=== PATIENT | female | born 1970 | race Caucasian/White ===

== ENCOUNTER 2016-07-18 08:31 | Inpatient (IN) | payer OTHER ==
[~2016-07-18] VITALS: Ht 157.5 cm; Wt 72.6 kg
[~2016-07-18 08:31] MED LIST: ATIVAN0.5 MG PO; ATIVAN1 MG PO; CYCLOBENZAPRINE10 M3 PO; ESCITALOPRAM10 MG PO; ESTRADIOL0.0375 MG1 TOP; FIORICET 325 MG1 TAB PO; K-TAB ER10 MEQ PO; LEVAQUIN500 MG PO; METHADONE HYDRO10 MG PO; METHADONE10 MG PO; METHADONE10 MG/1 M2 PO; NORCO 325 MG-51 TAB PO; NORETHINDRONE0.35 MG PO; OXYCODONE5 M1 PO; PEPCID40 MG PO; PREDNICOT20 MG PO; PROAIR HFA0.09 MG/Ac PO; PROGESTERONE100 M1 PO; PROGESTERONE100 MG PO; PROTONIX40 M3 PO; ZITHROMAX250 M1 PO; ZOFRAN ODT4 MG SL; ZOFRAN4 M2 PO
--- NOTE | 2016-07-18 08:41 | NUR ---
C/O CP SINCE THIS MORNING. STATES IT FEELS LIKE AN ELEPAHANT IS SITTING ON HER CHEST. PT C/O SOB. PT STATES SHE IS DETOXING FROM METHADONE X 18 DAYSPT STATES SHE IS VOMITING ALSO WITH ABDOMINAL PAIN
--- NOTE | 2016-07-18 08:48 | NUR ---
PT STATES SHE HAD GASTRIC BYPASS IN 2011 AND EVER SINCE THEN SHE HAS NOT BEEN HEALTHY. PT HAD BEEN ON METHADONE FOR 10 YEARS.
[2016-07-18 08:57] LABS: ABSOLUTE BASOPHIL COUNT 0.1 /CUMM (0.0-0.2); ABSOLUTE EOSINOPHIL COUNT 0 /CUMM (0.0-0.7); ABSOLUTE GRANULOCYTE CT 5.5 /CUMM (1.4-6.5); ABSOLUTE LYMPH COUNT 3.3 /CUMM (1.2-3.4); ABSOLUTE MONOCYTE COUNT 0.5 /CUMM (0.10-0.60); BASOPHIL % 0.6 % (0.0-2.0); EOSINOPHIL % 0 % (0-5); GRANULOCYTE % 59.2 % (42.2-75.2); HEMATOCRIT 33.7 % (37-47); MEAN CORPUSCULAR HGB 26.2 PG (27.0-31.0); MEAN CORPUSCULAR HGB CONC 32.7 G/DL (33.0-37.0); MEAN CORPUSCULAR VOLUME 79.9 FL (81.0-99.0); MEAN PLATELET VOLUME 7.2 FL (7.4-10.4); PLATELET COUNT 237 /CUMM (130-400); RBC DISTRIBUTION WIDTH 19.5 % (11.5-14.5); RED BLOOD CELL CT 4.22 /CUMM (4.20-5.40); WHITE BLOOD CELL COUNT 9.3 /CUMM (4.8-10.8)
--- NOTE | 2016-07-18 09:04 | NUR ---
LABS DRAWN AND SENT, LAV,SST,BLUE,SHELL TOP
--- NOTE | 2016-07-18 09:14 | ED CARDIAC/CP/PALPITATIONS ---
See Addendum History of Present Illness General Chief Complaint: Chest Pain Stated Complaint: CHEST PAIN X FEW HOURS Source: patient, family, old records Exam Limitations: no limitations Vital Signs & Intake/Output Vital Signs & Intake/Output Vital Signs Date Time Temp Pulse Resp B/P B/P Pulse O2 O2 Flow FiO2 Mean Ox Delivery Rate 07/18 1403 98.8 74 18 103/70 98 Room Air 07/18 1126 98.0 74 16 119/88 98 Room Air 07/18 0853 96 07/18 0840 97.4 69 20 146/88 96 Room Air Allergies Coded Allergies: Sulfa (Sulfonamide Antibiotics) (HIVES RASH 12/20/15) acetaminophen (Severe, LIVER PROBLEMS 12/20/15) aspirin (VOMITING 12/20/15) codeine (VOMITING 12/20/15) Reconcile Medications Methadone HCl 10 MG/ML ORAL.CONC 80 MG PO DAILY MAINTENCE (Reported) Potassium Chloride (K-Tab ER) 10 MEQ TABLET.ER 1 TAB PO DAILY HYPOKALEMIA Triage Note: C/O CP SINCE THIS MORNING. STATES IT FEELS LIKE AN ELEPAHANT IS SITTING ON HER CHEST. PT C/O SOB. PT STATES SHE IS DETOXING FROM METHADONE X 18 DAYSPT STATES SHE IS VOMITING ALSO WITH ABDOMINAL PAIN Triage Nurses Notes Reviewed? yes Onset: Abrupt Duration: hour(s):, day(s):, constant, continues in ED Timing: recent history Quality/Severity: moderate, severe, pressure, sharp HPI: 46-year-old female comes into emergency room for multiple complaints. Patient reports that she recently stopped her methadone about a week ago. She has been experiencing nausea vomiting abdominal pain. She has a history of gastric bypass surgery. Today she reports that she's been having associated chest pain has been going on for the past 3 hours. She feels like someone is sitting on her chest. Patient reports associated nausea chills and sweats. (ANI LIU) Past History Travel History Traveled to [place] past 21 day No Medical History Any Pertinent Medical History? 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 No (ANI LIU) Review of Systems Review of Systems Constitutional: Reports: see HPI. EENTM: Reports: no symptoms. Respiratory: Reports: see HPI. Cardiovascular: Reports: see HPI. GI: Reports: see HPI. Genitourinary: Reports: no symptoms. Musculoskeletal: Reports: no symptoms. Skin: Reports: no symptoms. Neurological/Psychological: Reports: no symptoms. Hematologic/Endocrine: Reports: no symptoms. Immunologic/Allergic: Reports: no symptoms. All Other Systems: Reviewed and Negative (ANI LIU) Physical Exam Physical Exam General Appearance: well developed/nourished, alert, awake Head: atraumatic, normal appearance Eyes: Bilateral: normal appearance, EOMI. Ears, Nose, Throat: normal pharynx, normal ENT inspection, hearing grossly normal Neck: normal inspection, full range of motion Respiratory: normal breath sounds, no respiratory distress Cardiovascular: regular rate/rhythm Gastrointestinal: soft Rectal: heme negative stool Back: normal inspection Extremities: normal inspection, normal range of motion, no edema Neurologic/Psych: awake, alert, oriented x 3, normal gait, normal mood/affect Skin: intact, normal color Core Measures ACS in differential dx? No Severe Sepsis Present: No Septic Shock Present: No (ANI ILU) Progress Differential Diagnosis: AMI, aortic dissection, atrial fibrillation, costochondritis, intracranial hemorrhage, musculoskeletal pain, myocarditis, pancreatitis, pericarditis, pneumonia, PSVT, pulmonary embolism, PUD/GERD, PVCs/ PACs, respiratory failure, rib fracture, sepsis, unstable angina, V-fib/V-Tach, WPW syndrome, opioid withdrawal Plan of Care: Orders Procedure Date/time Status Clear Liquid Diet 07/18 D Active Lab Add-on Test 07/18 1358 Active Code Status 07/18 1353 Active Lab Add-on Test 07/18 1335 Active Lab Add-on Test 07/18 1332 Active LACTIC ACID 07/18 1332 Active Pathway - chart 07/18 1319 Active House Staff 07/18 1319 Active Code Status 07/18 1319 Complete Patient Data 07/18 1315 Active Telemetry/Ethylbenzene Oxidizer 07/18 1225 Active Add-on Test (ER Only) 07/18 1210 Active CULTURE,URINE 07/18 1114 Active URINE DRUGS OF ABUSE 07/18 1113 Complete Add-on Test (ER Only) 07/18 1005 Active URINALYSIS 07/18 1005 Complete Add-on Test (ER Only) 07/18 0914 Active Add-on Test (ER Only) 07/18 0913 Active Add-on Test (ER Only) 07/18 0912 Active PROTHROMBIN TIME 07/18 0851 Active MAGNESIUM 07/18 0851 Active LIPID PANEL 07/18 0851 Active LIPASE 07/18 0851 Active LACTIC ACID 07/18 0851 Active HUMAN BETA HCG SCREEN 07/18 0851 Active GLYCOSYLATED HGB 07/18 0851 Active DIRECT LDL 07/18 0851 Active D-DIMER 07/18 0851 Active AMYLASE 07/18 0851 Active TROPONIN LEVEL 07/18 0849 Active ETHANOL 07/18 0849 Active COMPREHENSIVE METABOLIC PANEL 07/18 0849 Active CBC WITHOUT DIFFERENTIAL 07/18 0849 Complete EKG 07/18 0832 Active US-LIMITED ABDOMEN 07/18 UNK Active VTE Mechanical Prophylaxis 07/18 UNK Active Current Medications Sig/Blake Start time Last Medication Dose Stop Time Status Admin Enoxaparin Sodium 40 MG DAILY 07/19 1000 UNVr (Lovenox) Acetaminophen 650 MG Q6P PRN 07/18 1330 AC (Tylenol) Acetaminophen/ 1 TAB Q6P PRN 07/18 1330 AC Hydrocodone Bitart (Vicodin) Lactated Ringer's 1,000 ML ONCE ONE 07/18 1330 AC (Lactated Ringers) 07/18 1829 Morphine Sulfate 2 MG Q4P PRN 07/18 1330 AC (Morphine) Senna/Docusate Sodium 2 TAB AT BEDTIME PRN 07/18 1330 AC (Senokot S) Laboratory Tests 07/18/16 1400: Lactic Acid Pending 07/18/16 1114: Urine Opiates Screen < 100.00, Methadone Screen 683 H, Barbiturate Screen < 60, Ur Phencyclidine Scrn < 6.00, Amphetamines Screen < 100, U Benzodiazepines Scrn < 85, Urine Cocaine Screen < 50, Urine Cannabis Screen < 5.00, Urinalysis LIGHT H, Urine Color YEL, Urine Clarity HAZY H, Urine pH 6.0, Ur Specific Addison <= 1.005, Urine Protein NEG, Urine Ketones NEG, Urine Nitrite POS H, Urine Bilirubin NEG, Urine Urobilinogen 0.2, Ur Leukocyte Esterase MOD H, Ur Microscopic SEDIMENT EXAMINED, Urine RBC 1-3, Urine WBC > 75 H, Ur Epithelial Cells FEW, Urine Bacteria MANY H, Micro UA Comment MORE INFO: H, Urine Hemoglobin SMALL H, Urine Glucose NEG 07/18/16 0851: Anion Gap 18 H, Estimated GFR > 60, BUN/Creatinine Ratio 17.5, Glucose 101 H, Hemoglobin A1c Pending, Lactic Acid 4.5 H, Calcium 7.6 L, Magnesium 1.7, Total Bilirubin 1.8 H, AST 613 H, ALT 359 H, Alkaline Phosphatase 185 H, Troponin I < 0.01, Total Protein 6.2 L, Albumin 3.5, Globulin 2.7, Albumin/Globulin Ratio 1.3, Triglycerides 767 H, Cholesterol 134, LDL Cholesterol Direct Pending , LDL Cholesterol, Calc Pending, HDL Cholesterol 53, Cholesterol/HDL Ratio 3, Amylase 150 H, Lipase 1804 H, Total Beta HCG NEGATIVE, PT Pending, INR Pending , D-Dimer 1028 H, CBC w Diff NO MAN DIFF REQ, RBC 4.22, MCV 79.9 L, MCH 26.2 L, RDW 19.5 H, MPV 7.2 L, Gran % 59.2, Lymphocytes % 35.0, Monocytes % 5.2, Eosinophils % 0, Basophils % 0.6, Absolute Granulocytes 5.5, Absolute Lymphocytes 3.3, Absolute Monocytes 0.5, Absolute Eosinophils 0, Absolute Basophils 0.1, PUBS MCHC 32.7 L, Serum Alcohol 289.0 Microbiology 07/18 1114 URINE ROUT: Urine Culture - RECD Initial ED EKG: normal intervals, normal p-waves, normal sinus rhythm, rate (59) (ANI LIU) Departure Departure Disposition: STILL A PATIENT Condition: Stable Clinical Impression Primary Impression: Acute alcoholic pancreatitis Secondary Impressions: Chest pain, Lactic acid acidosis, UTI (urinary tract infection) Referrals: JOE SARGENT MD (PCP/Family) Departure Forms: Customer Survey General Discharge Information Admission Note Spoke With: VARUN ECHEVERRIA MD Documentation of Exam: Documentation of any treatments & extenuating circumstances including Concerns Regarding Discharge (functional status, medication knowledge or non-compliance, living conditions, etc.) that warrant an admission rather than observation: Patient will require IV fluids. GI consult. Repeat labs. IV nausea medications. Possibly EtOH withdrawal. Antibiotics. (ANI LIU) PA/CYBER SECURITY SPECIALIST Co-Sign Statement Statement: ED Attending supervision documentation- [] I saw and evaluated the patient. I have also reviewed all the pertinent lab results and diagnostic results. I agree with the findings and the plan of care as documented in the PA's/CYBER SECURITY SPECIALIST's documentation. [X] I have reviewed the ED Record and agree with the PA's/CYBER SECURITY SPECIALIST's documentation. [] Additions or exceptions (if any) to the PAs/CYBER SECURITY SPECIALIST's note and plan are summarized below: [] (ELEAZAR RAINES DO) Critical Care Note Critical Care Note Critical Care Time: non-applicable (ANI LIU)
--- NOTE | 2016-07-18 09:19 | NUR ---
DR. MACHUCA'S OFFICE CALLED RE PAIN MEDS PT ARRIVED TO THE OFFICE INTOXICATED ON 07/08 AND WAS DENIED RENEWAL OF HER METHADONE AND BROUGHT TO ED PA MADE AWARE
--- NOTE | 2016-07-18 09:34 | NUR ---
IV FLUIDS INFUSING DIRECTED PT MEDICATED FOR PAIN AND NAUSEA
--- NOTE | 2016-07-18 09:40 | NUR ---
CRITICAL TEST RESULTS [id number] SOCORRO PECK 46 F TESTS AND RESULTS: LACTIC ACID 4.5 Results received and read back by: GIUSEPPE RILEY Results received date and time: 07/18/16 0940 The following provider was notified of the results, and read the results back: ANI Otto PA-C Notified date and time: 07/18/16 at 0940
--- NOTE | 2016-07-18 10:19 | NUR ---
PT TO CAT SCAN
--- NOTE | 2016-07-18 10:39 | NUR ---
PT RETURNED FROM CAT SCAN MEDICATED DIRECTED
--- NOTE | 2016-07-18 10:45 | NUR ---
PT REMINDED TO KEEP ARM STRAIGHT FLUIDS RUNNING IN SLOWLY
--- NOTE | 2016-07-18 11:08 | CT SCAN REPORT ---
EXAMINATION: CT ANGIOGRAM OF THE CHEST WITH AND WITHOUT CONTRAST (CT PULMONARY ANGIOGRAM FOR PE) CT ABDOMEN PELVIS WITH IV CONTRAST CLINICAL INFORMATION: SEVERE CHEST PAIN, ELEVATED DIMER COMPARISON: Chest x-ray 02/08/2016, CT abdomen pelvis 12/20/2015 and MRI of abdomen 12/21/2015 TECHNIQUE: Multidetector volumetric imaging was performed from the thoracic inlet to below the diaphragms following the administration of 95 mL Optiray 350 intravenous contrast. No contrast reaction reported. Subsequently during the portal venous phase, multidetector volumetric imaging was performed from the diaphragmatic to the symphysis pubis. Sagittal, coronal, and MIP oblique sagittal reformatted images were obtained on the CT workstation, uploaded to PACS, and reviewed. Total exam dose-length product 1118.59 mGy-cm. FINDINGS: QUALITY OF STUDY/CONTRAST BOLUS: Satisfactory PULMONARY ARTERIES: The pulmonary arteries are normal in diameter. No central or segmental pulmonary emboli. THORACIC AORTA: No aneurysm or dissection. LUNG: No focal consolidation, nodules or masses. PLEURA: No pleural effusion or pneumothorax. MEDIASTINUM: Normal heart size. No pericardial effusion. No hilar or mediastinal lymphadenopathy. No evidence of septal bowing or right heart strain. CHEST WALL/AXILLA: No axillary or internal mammary lymphadenopathy. OSSEOUS STRUCTURES: No acute or suspicious osseous abnormality. ABDOMEN: Diffuse decreased hepatic parenchymal density, represents hepatic steatosis. No focal hepatic lesions seen. The portal vein is patent. Prior cholecystectomy. The spleen, pancreas, adrenal glands and kidneys are unremarkable. No renal stones or hydronephrosis. No focal renal lesion. The ureters are not dilated. No ureter stone. The urinary bladder is full and unremarkable. The patient is status post gastric bypass surgery. There is no evidence of obstruction at the anastomotic site. The small bowel loops and colon are not dilated. The appendix is visualized and unremarkable. The uterus is unremarkable. No adnexal masses seen. The abdominal aorta is normal in diameter. No mesenteric or retroperitoneal adenopathy. No free air or fluid in the abdomen pelvis. No aggressive bony lesions or acute bone fractures. IMPRESSION: 1. No pulmonary embolus. 2. No thoracic or abdominal aortic aneurysm. 3. Hepatic steatosis. 4. Prior gastric bypass surgery without evidence of obstruction at the anastomotic site 5. Prior cholecystectomy. VTE: negative
--- NOTE | 2016-07-18 11:18 | NUR ---
URINE TRIO SENT AND ICE CHIPS PROVIDED PER REQUEST
--- NOTE | 2016-07-18 11:27 | NUR ---
PT GIVEN MULTIPLE BLANKETS PER REQUEST FOR BEING COLD. PT ASKING FOR WATER AND GIVEN ICE CHIPS PER PA. C/O DISCOMFORT, NAUSEA, FEELING TERRIBLE
--- NOTE | 2016-07-18 12:59 | NUR ---
MEDICATED WITH ATIVAN PER EMAR. CONTINUES TO COMPLAIN ABOUT ACHES AND DISCOMFORT. REQUESTING MEDS
--- NOTE | 2016-07-18 13:18 | History & Physical ---
General Information and HPI MD Statement: I have seen and personally examined SOCORRO PECK and documented this H&P. The patient is a 46 year old F who presented with a patient stated chief complaint of [abdominal pain]. Source of Information: patient History of Present Illness: This is a 46-year-old female with a past medical history of morbid obesity status post Claire-en-Y gastric bypass surgery in 2002 which was complicated by hiatal hernia or obstruction, and status post cholecystectomy 4 years back, history of recurrent pancreatitis in the past, with her last admission for pancreatitis in December 2015, on chronic methadone which has been tapered off in the last week (07/11/16 with the last dose )who presented to the [facility] with persistent epigastric pain and tenderness for the last 1 week. The patient's pain started suddenly and has been ongoing since then. The pain, 8 on 10, in the epigastric area, radiating to the back sometimes, is associated with nausea and clear liquid vomitus. The patient was concerned about having mild heart attack as the pain was mostly in her chest area but she denied any other cardiac symptoms, for example shortness of breath palpitations hand numbness or tingling. She denied any weight loss. She has not been following up with her bariatric surgeon on outpatient basis, and her last appointment was in January 2016 and at that time she was reassured that everything was okay - The patient the patient was lying in moderate distress and was heavily sedated due to pain medications but was awake alert oriented 3. She complained of forearm 10 pain at the time of examination. She also felt less nauseous and was asking for clear liquids Allergies/Medications Allergies: Coded Allergies: Sulfa (Sulfonamide Antibiotics) (HIVES RASH 12/20/15) acetaminophen (Severe, LIVER PROBLEMS 12/20/15) aspirin (VOMITING 12/20/15) codeine (VOMITING 12/20/15) Home Med list Methadone HCl 10 MG/ML ORAL.CONC 80 MG PO DAILY MAINTENCE (Reported) Potassium Chloride (K-Tab ER) 10 MEQ TABLET.ER 1 TAB PO DAILY HYPOKALEMIA Past History Travel History Traveled to [place] past 21 day No Medical History Neurological: migraine EENT: sinusitis Cardiovascular: NONE Respiratory: asthma Gastrointestinal: pancreatitis Hepatic: recurrent hepatitis with early cirrhosis Renal: NONE Musculoskeletal: disk herniation Psychiatric: anxiety, opioid dependence Endocrine: NONE Blood Disorders: anemia Cancer(s): NONE INTAKE CLERK/Reproductive: 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 spouse Services at Home: None Primary Language: Romanian Smoking Status: Former Smoker ETOH Use: alcoholic Illicit Drug Use: denies illicit drug use Living Will? unknown Functional Ability ADLs Independent: dressing, eating, toileting, bathing. Ambulation: independent IADLs Independent: shopping, housework, finances, food prep, telephone, transportation , medication admin. Review of Systems Review of Systems Constitutional: Reports: see HPI. Denies: chills. GI: Reports: abdominal pain, constipation, nausea. Genitourinary: Denies: dysuria, frequency, hematuria. Musculoskeletal: Denies: gout, joint pain, joint swelling. Skin: Denies: cysts, change in hair/nails, dryness. Exam & Diagnostic Data Last 24 Hrs of Vital Signs/I&O Vital Signs Date Time Temp Pulse Resp B/P B/P Pulse O2 O2 Flow FiO2 Mean Ox Delivery Rate 07/18 1126 98.0 74 16 119/88 98 Room Air 07/18 0853 96 07/18 0840 97.4 69 20 146/88 96 Room Air Intake & Output 07/18 1600 / 0800 05 0000 Intake Total 1000 Output Total Balance 1000 Intake, IV 1000 Intake, Oral 0 Patient 170 lb Weight Weight Reported by Patient Measurement Method Physical Exam General Appearance Alert, Oriented X3, Moderate Distress Skin No Rashes Skin Temp/Moisture Exam: Cool/Dry HEENT Atraumatic, PERRLA Neck Supple, No JVD Lymphatic Axillary nl, Cervical nl Cardiovascular Normal S1, Normal S2 Lungs Clear to Auscultation, Normal Air Movement Abdomen mild tenderness in the epigastric area Normal bowel sounds no guarding Neurological Normal Gait, Normal Speech Extremities No Clubbing, No Cyanosis Diagnostic Data EKG Results Normal sinus rhythm Assessment/Plan Assessment: This is a 46-year-old female with a past medical gastric bypass surgery, migraine headache, chronic opiate use with recent taper of methadone who presented to [facility] persistent abdominal pain with nausea and vomiting. The imaging and the labs values were significant for acute pancreatitis Vitals at the time of admission showed blood pressure 146/88, respiration rate of 20, temperature 97.4, saturation 96% on room air, pulse rate of 69 Labs WBC of 9.3 with no bands, hemoglobin of 11.0, Chemistries show sodium of 137, potassium of 3.5, chloride of 98, bicarbonate 22 , anion gap of 18, glucose of 101, creatinine and GFR within normal limits Lipase greater than 1800, elevated AST and Alp CT scan shows: 1. No pulmonary embolus. 2. No thoracic or abdominal aortic aneurysm. 3. Hepatic steatosis. 4. Prior gastric bypass surgery without evidence of obstruction at the anastomotic site 5. Prior cholecystectomy. Assessment 1. Acute pancreatitis likely secondary to chronic alcohol use the patient's alcohol level greater than 298. Other possibility for acute pancreatitis considering gastric bypass surgery could be gallstones, even though calcium oxalate stones are more common gastric bypass patients 2. Alcoholic hepatitis and alcoholic dependence 3. Chronic opiate use 4. Elevated anion gap with no evidence of metabolic acidosis. Likely secondary to dehydration Plan Admit to general medicine floor IV Ringer lactate at 200 M's per hour with aggressive IV hydration The patient is requesting to drink something, and it is appropriate to start a clear liquid diet Pain control with IV morphine 2 mg every 4 when necessary Rule out secondary causes of pancreatitis other than alcohol, this includes checking a lipid panel for hypertriglyceridemia, and also do ultrasound of the abdomen to rule out any CBD stone considering elevated bilirubin level we will check coags, INR and PTT to calculate the disc imaging factor for alcoholic hepatitis We can use IV Ativan as needed for alcohol withdrawal as the patient states her last drink was 48 hours back and the serum alcohol level was greater than 298 DVT prophylaxis with subcutaneous Lovenox Patient is full code Pain pathways As Ranked By This Provider Problem List: 1. Chest pain 2. Vomiting 3. Intractable abdominal pain Core Measures/Miscellaneous Acute Coronary Syndrome ACS Diagnosis: No Cerebrovascular Accident CVA/TIA Diagnosis: No Congestive Heart Failure CHF Diagnosis: No Venous Thromboembolism VTE Risk Factors: Acute medical illness, Age > 40 [facility] prophylaxis d/t: No contraindications No VTE Pharm Prophylaxis d/t: No contraindications VTE Diagnosis: No VTE Type: NONE VTE Confirmed by (Test): NONE Severe Sepsis Severe Sepsis Present: No Septic Shock Septic Shock Present: No Miscellaneous Documentation Attending Case Discussed With: DR Tim Primary Care Physician: JOE SARGENT MD Patient sees these Specialists dr simpson Level of Patient Care: General Medicine
--- NOTE | 2016-07-18 14:02 | NUR ---
PT RESTING COMFORTABLY AT THIS TIME. LACTIC DRAWN AND SENT. VSS. FINALLY FEELING BETTER, CALMER, AND LESS RESTLESS OR IN PAIN. PT INFORMED THAT U/S IS READY FOR HER, BUT REQUESTING TO DO STUDY LATER. U/S AWARE. LIGHTS DIMMED FOR COMFORT AND CALL [facility] IN REACH
[2016-07-18 14:05] VITALS: BP 103/70
[2016-07-18 14:05] LABS: PT 12.5 SEC (9.4-12.5)
--- NOTE | 2016-07-18 14:05 | NUR ---
PT ALSO GIVEN GOWN TO CHANGE, BUT STATES "IM TOO COLD, I WANT TO STAY LIKE THIS". AWARE THAT GOWN IS PREFERED FOR ADMITTED PATIENTS. IN AGREEMENT TO CHANGE LATER FOR U/S
[2016-07-18 15:26] VITALS: BP 114/55
--- NOTE | 2016-07-18 15:26 | NUR ---
PT NOTABLY TREMULOUS, FEELING ACHY. CIWA 11 AND MEDICATED WITH ATIVAN PER eMAR. ALSO MED WITH CIPRO PER ORDER FOR UTI AND INFORMED OF PLAN FOR U/S. PT ASKING TO STAY IN REGULAR CLOTHES. U/S AWARE
--- NOTE | 2016-07-18 15:37 | NUR ---
LR GTT AT 200ML/HR PER ORDER. PT TO U/S VIA STRETCHER
--- NOTE | 2016-07-18 15:45 | NUR ---
PT TO ROOM 204 BED 1'
--- NOTE | 2016-07-18 16:16 | NUR ---
PT CONT TO BE RESISTIVE OT CHANGING INTO HOSPITAL GARB, UPON RETURN FROM US.
--- NOTE | 2016-07-18 16:33 | NUR ---
REPORT GIVEN DISTRIBUTION BOOKED.
--- NOTE | 2016-07-18 16:33 | NUR ---
REPORT TO DASHAWN
--- NOTE | 2016-07-18 17:12 | ULTRASOUND REPORT ---
EXAMINATION: US ABDOMEN LIMITED CLINICAL INFORMATION: 46-year-old female with severe chest pain, elevated D-dimer. Suspected pancreatitis. COMPARISON: CTA of the chest, abdomen and pelvis done earlier today. TECHNIQUE: Real-time imaging of the right upper quadrant abdominal viscera. FINDINGS: PANCREAS: Normal. LIVER: Mild diffuse heterogeneous abnormal increased echotexture is noted throughout the entire liver, consistent with diffuse liver disease likely secondary to hepatic steatosis or hepatocellular disease. No sonographically detectable superimposed discrete focal abnormality is present. GALLBLADDER: The gallbladder is surgically absent. COMMON BILE DUCT: Normal in caliber measuring 0.6 cm in diameter. RIGHT KIDNEY: Normal. No hydronephrosis. No renal calculi or focal parenchymal lesions. The kidney measures 8.6 cm in maximum dimension. FREE FLUID: None. IMPRESSION: 1. No sonographic evidence of biliary obstruction and/or choledocholithiasis is present. 2. Surgically absent gallbladder. 3. Diffuse abnormality involving the liver, consistent with diffuse liver disease, without any superimposed discrete focal abnormality.
[2016-07-18 18:45] VITALS: BP 128/82
--- NOTE | 2016-07-18 19:04 | NUR ---
ADMISSION ASSESSMENT: PT ARRIVED TO FLOOR AT 1745 FROM ED. PT A&OX3, VSS, AFEBRILE, PT STATES PAIN 8/10 TO LOWER BACK. #20 LAC IV W/LR@150ML/HR INFUSING. PT ASST X1 TO BATHROOM SHE IS FEELING "UNSTEADY". PT ASKING FOR ATIVAN AND ZOFRAN AND PYRIDIUM. AWAITING ORDERS. 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 ORDERS PLACED. PT MEDICATED FOR PAIN, NAUSEA, CIWA. ORIENTED TO ROOM AND FLOOR.
[2016-07-18 22:38] VITALS: BP 141/81
[2016-07-19 06:13] VITALS: BP 130/72
--- NOTE | 2016-07-19 07:11 | PN- Housestaff ---
MARTÍN CASTILLO,IRVING 07/19/16 0711: Subjective Follow-up For: PANCREATITIS alcohol dependence Subjective: Pt seen today, feels the same as yesterday, continues to endorse feeling weak, sore, can't walk, chest tightness, nausea, epigastric pain radiating to the back. currently the pain is 7/10, her pain ranged from 3-10 over last 24 hrs, and she received total 8 mg of iv morphine. her ciwa is 0-11, received total 3 mg of iv ativan over the last 24 hrs labs reviewed - hb 11 to 9.3, platelet 237 to 143, wbc 9.3 to 6. k 3.2 to 3.4 ( ordered 1x40 kdur), na 131 to 136, mag 1.7 to 1.3 (ordered 1gm mg sulf), tibili 1.8 to 2.4, with 1.1 direct bili, ast 613 to 421, alt 359 to 276, alk phos 185 to 177. ca 7.3. alb 2.7. lactic acid up to 5.7, now down to 2.6 . ag from 18 to 9. she tolerated clear liquid diet well with intermittent nausea, will advance to full liquid. RUQ US IMPRESSION: 1. No sonographic evidence of biliary obstruction and/or choledocholithiasis is present. 2. Surgically absent gallbladder. 3. Diffuse abnormality involving the liver, consistent with diffuse liver disease, without any superimposed discrete focal abnormality. Review of Systems Constitutional: Reports: see HPI. Objective Last 24 Hrs of Vital Signs/I&O Vital Signs Date Time Temp Pulse Resp B/P B/P Pulse O2 O2 Flow FiO2 Mean Ox Delivery Rate 07/19 0613 98.7 101 18 130/72 96 Room Air 07/18 2238 98.9 98 18 141/81 95 Room Air 07/18 1845 97.8 88 16 128/82 07/18 1615 98.3 88 16 124/83 100 Room Air 07/18 1526 97.8 78 18 114/55 07/18 1525 97.8 70 16 114/55 96 Room Air 07/18 1405 98.8 74 18 103/70 05 1403 98.8 74 18 103/70 98 Room Air 07/18 1126 98.0 74 16 119/88 98 Room Air Intake & Output 07/19 1600 05 0800 05 0000 Intake Total 1680 1100 Output Total 500 Balance 1680 600 Intake, IV 1200 500 Intake, Oral 480 600 Output, Urine 500 Patient 72.575 kg Weight Weight Estimated Measurement Method Physical Exam General Appearance: Alert, Oriented X3, Cooperative, No Acute Distress Cardiovascular: Regular Rate, Normal S1, Normal S2 Lungs: Clear to Auscultation, Normal Air Movement Abdomen: Soft, epigastric tenderness Extremities: No Edema Current Medications: Current Medications Sig/Blake Start time Last Medication Dose Route Stop Time Status Admin Acetaminophen 650 MG Q6P PRN 07/18 1330 AC PO Acetaminophen/ 1 TAB Q6P PRN 07/18 1330 AC 07/19 Hydrocodone Bitart PO 0637 Ciprofloxacin 0 .STK-MED ONE 07/18 1522 DC PO Ciprofloxacin 500 MG ONCE ONE 07/18 1445 DC 07/18 PO 07/18 1446 1527 Dicyclomine HCl 20 MG ONCE ONE 07/18 1015 DC 07/18 IM 07/18 1016 1036 Enoxaparin Sodium 40 MG DAILY 07/19 1000 AC SC Hydroxyzine HCl 0 .STK-MED ONE 07/18 1040 DC PO Hydroxyzine HCl 0 .STK-MED ONE 07/18 1039 DC PO Hydroxyzine HCl 50 MG ONCE ONE 07/18 1015 DC 07/18 PO 07/18 1016 1036 Lactated Ringer's 1,000 ML Q10H 07/18 1900 AC 07/19 IV 0437 Lactated Ringer's 1,000 ML ONCE ONE 07/18 1330 DC 07/18 IV 07/18 1829 1536 Lorazepam 0 Q2 PRN 07/18 1830 AC 07/19 IV 0436 Lorazepam 1 MG ONCE ONE 07/18 1530 DC 05 IV 07/18 1531 1527 Lorazepam 0 .STK-MED ONE 07/18 1526 DC .ROUTE Lorazepam 1 MG ONCE ONE 07/18 1300 DC 07/18 IV 07/18 1301 1258 Lorazepam 0 .STK-MED ONE 07/18 1258 DC .ROUTE Magnesium Sulfate 1 GM ONCE ONE 07/19 0915 AC Dextrose/Water 100 ML IV 07/19 1314 Metoclopramide HCl 10 MG ONCE ONE 07/18 1300 DC 07/18 IV 07/18 1301 1200 Metoclopramide HCl 0 .STK-MED ONE 07/18 1151 DC .ROUTE Morphine Sulfate 2 MG Q4P PRN 07/18 1330 AC 07/19 IV 0757 Ondansetron HCl 4 MG Q6P PRN 07/18 1815 AC 07/18 IV 1841 Phenazopyridine HCl 100 MG PC 07/18 1830 AC 07/18 PO 07/20 1301 1953 Potassium Chloride 20 MEQ ONCE ONE 07/19 0845 DC PO 07/19 0846 Potassium Chloride 20 MEQ ONCE ONE 07/19 0845 DC PO 07/19 0846 Potassium Chloride 10 MEQ ONCE ONE 07/18 2115 DC 07/18 IV 07/18 2116 2358 Senna/Docusate Sodium 2 TAB AT BEDTIME PRN 07/18 1330 AC PO Sodium Chloride 1,000 ML BOLUS ONE 07/18 1015 DC 07/18 IV 07/18 1114 1200 Sodium Chloride 1,000 ML BOLUS ONE 07/18 0930 DC 07/18 IV 07/18 1029 0931 Last 24 Hrs of Lab/Ghassan Results Last 24 Hrs of Labs/Mics: Laboratory Tests 07/19/16 0620: Anion Gap 9, Estimated GFR > 60, BUN/Creatinine Ratio 13.8, Lactic Acid 2.6 H, Calcium 7.3 L, Magnesium 1.3 L, Total Bilirubin 2.4 H, Direct Bilirubin 1.1 H, AST 421 H, ALT 276 H, Alkaline Phosphatase 177 H, Total Protein 5.3 L, Albumin 2.7 L, Triglycerides 372 H, Cholesterol 102, LDL Cholesterol Direct < 30.00, LDL Cholesterol, Calc -9 L, HDL Cholesterol 37 L, Cholesterol/HDL Ratio 3, CBC w Diff NO MAN DIFF REQ, RBC 3.50 L, MCV 81.3, MCH 26.7 L, RDW 19.7 H, MPV 7.6, Gran % 51.0, Lymphocytes % 41.9, Monocytes % 5.4, Eosinophils % 1.3, Basophils % 0.4, Absolute Granulocytes 3.1, Absolute Lymphocytes 2.5, Absolute Monocytes 0.3, Absolute Eosinophils 0.1, Absolute Basophils 0, PUBS MCHC 32.8 L , Hepatitis A IgM Ab Pending, Hep Bs Antigen Pending, Hep B Core IgM Ab Conf Pending, Hepatitis C Antibody Pending 07/18/16 1910: Anion Gap 15, Estimated GFR > 60, BUN/Creatinine Ratio 18.8, Lactic Acid 5.7 H 07/18/16 1400: Lactic Acid 4.0 H 07/18/16 1114: Urine Opiates Screen < 100.00, Methadone Screen 683 H, Barbiturate Screen < 60, Ur Phencyclidine Scrn < 6.00, Amphetamines Screen < 100, U Benzodiazepines Scrn < 85, Urine Cocaine Screen < 50, Urine Cannabis Screen < 5.00, Urinalysis LIGHT H, Urine Color YEL, Urine Clarity HAZY H, Urine pH 6.0, Ur Specific [place] <= 1.005, Urine Protein NEG, Urine Ketones NEG, Urine Nitrite POS H, Urine Bilirubin NEG, Urine Urobilinogen 0.2, Ur Leukocyte Esterase MOD H, Ur Microscopic SEDIMENT EXAMINED, Urine RBC 1-3, Urine WBC > 75 H, Ur Epithelial Cells FEW, Urine Bacteria MANY H, Micro UA Comment MORE INFO: H, Urine Hemoglobin SMALL H, Urine Glucose NEG Microbiology 07/18 1113 URINE ROUT: Urine Culture - RECD Assessment/Plan Assessment: 46-year-old female with PMH of morbid obesity status post Claire-en-Y gastric bypass surgery in 2002 which was complicated by hiatal hernia or obstruction, and status post cholecystectomy 4 years back, history of recurrent pancreatitis in the past, with her last admission for pancreatitis in December 2015, on chronic methadone which has been tapered off in the last week (07/11/16 with the last dose), presented to [facility] persistent abdominal pain with nausea and vomiting. The imaging and the labs values were significant for acute pancreatitis, lipase greater than 1800. # Acute pancreatitis likely secondary to chronic alcohol use the patient's alcohol level greater than 298. Other possibility for acute pancreatitis considering gastric bypass surgery could be gallstones, even though calcium oxalate stones are more common gastric bypass patients. RUQ US was negative for CBD * Continue LR 200ml/hr * Pain control with IV morphine 2 mg every 4 when necessary * Low dose ativan PRN # Alcoholic hepatitis and alcoholic dependence * Trend LFT * CIWA Q2 # Chronic opiate use * Watchout for signs of withdrawal # Elevated anion gap with no evidence of metabolic acidosis. Likely secondary to dehydration * Resolved # Hypokalemia * Replete as needed # Hypomagnesiumia * Replete as needed Diet: full liquid DVT prophylaxis with alps & subcutaneous Lovenox Full code Problem List: 1. Pancreatitis Pain Ratin Pain Location: epigastric to the back Pain Goal: Pain 4 or less Pain Plan: morphine Tomorrow's Labs & Rationales: bep, calcium, albumin, lft, direct bili, mag, cbc, for lab abnormalities associated with pancreatitis DVT/Prophylaxis: mechanical, pharmacological JEFFRYLORRAINE Tierney 07/19/16 1227: Attending MD Review Statement Attending Statement Attending MD Statement: examined this patient, discuss w/resident/PA/STATION REPAIRER, agreed w/resident/PA/STATION REPAIRER, discussed with family, reviewed EMR data (avail), discussed with nursing, discussed with case mgmt, reviewed images, amended to note Attending Assessment/Plan: Patient admitted with acute pancreatitis, alcohol induced LFTs elevated in pattern, lipase 1000s on admission, no ct necrosis, clincally improving , c/w IVF and hydration. CIWA scale, trend lipase, advance diet as tolerated, pain control. gi/dvt prophyalxis full code.
[2016-07-19 08:07] LABS: ABSOLUTE BASOPHIL COUNT 0 /CUMM (0.0-0.2); ABSOLUTE EOSINOPHIL COUNT 0.1 /CUMM (0.0-0.7); ABSOLUTE GRANULOCYTE CT 3.1 /CUMM (1.4-6.5); ABSOLUTE LYMPH COUNT 2.5 /CUMM (1.2-3.4); ABSOLUTE MONOCYTE COUNT 0.3 /CUMM (0.10-0.60); BASOPHIL % 0.4 % (0.0-2.0); EOSINOPHIL % 1.3 % (0-5); MEAN CORPUSCULAR HGB 26.7 PG (27.0-31.0); MEAN CORPUSCULAR HGB CONC 32.8 G/DL (33.0-37.0); MEAN CORPUSCULAR VOLUME 81.3 FL (81.0-99.0); MEAN PLATELET VOLUME 7.6 FL (7.4-10.4); PLATELET COUNT 143 /CUMM (130-400); RBC DISTRIBUTION WIDTH 19.7 % (11.5-14.5)
[2016-07-19 09:03] LABS: HEMATOCRIT 28.5 % (37-47)
[2016-07-19 10:00] VITALS: BP 118/81
[2016-07-19 14:15] VITALS: BP 124/70
--- NOTE | 2016-07-19 18:55 | NUR ---
AT THIS TIME PT C/O CHEST PAIN, THIS RN TOOK PT VITAL SIGNS, BP-106/80, PULSE-123, O2-91% ON RA, PT AFEBRILE, THIS RN PAGED CERTIFIED MARINE MECHANIC #[phone], CERTIFIED MARINE MECHANIC ORDERED STAT EKG AND STAT TROPONIN, EKG COMPLETE AND BLOOD DRAWN, CERTIFIED MARINE MECHANIC AT BEDSIDE NOW, NO FURTHER ORDERS, WILL CONT TO MONITOR.
[2016-07-19 22:14] VITALS: BP 124/72
--- NOTE | 2016-07-20 06:54 | PN- Housestaff ---
MARTÍN CASTILLO,IRVING 07/20/16 0654: Subjective Follow-up For: pancreatitis Subjective: pt continues to feel weak, sore, with chest tightness, epigastric pain radiating to back. she has been tolerating diet well, has been eating regular food since this morning. she also has been walking around. morphine makes her nauseous and she was requesting dilaudid. plan for discharge tomorrow. Review of Systems Constitutional: Reports: see HPI. Objective Last 24 Hrs of Vital Signs/I&O Vital Signs Date Time Temp Pulse Resp B/P B/P Pulse O2 O2 Flow FiO2 Mean Ox Delivery Rate 07/20 0658 99.0 99 18 116/64 100 Room Air 07/19 2214 97.8 103 19 124/72 96 Room Air 07/19 1415 97.8 98 18 124/70 96 Room Air Intake & Output 07/20 1600 07/20 0800 07/20 0000 Intake Total 2080 2400 Output Total 800 1200 Balance 1280 1200 Intake, IV 1600 1600 Intake, Oral 480 800 Output, Urine 800 1200 Physical Exam General Appearance: Alert, Oriented X3, Cooperative, Mild Distress Cardiovascular: Normal S1, Normal S2, tachycardic Lungs: decreased breath sound on right lung base, cxr obtained, normal. Abdomen: Soft, tender epigastric and ruq . no rebound tenderness Neurological: Normal Speech Extremities: No Edema Current Medications: Current Medications Sig/Blake Start time Last Medication Dose Route Stop Time Status Admin Acetaminophen 650 MG .STK-MED ONE 07/19 2319 DC PO 07/19 2320 Acetaminophen 650 MG Q6P PRN 07/18 1330 AC 07/19 PO 2319 Acetaminophen/ 1 TAB Q6P PRN 07/18 1330 AC 07/20 Hydrocodone Bitart PO 1102 Enoxaparin Sodium 40 MG DAILY 07/19 1000 AC 07/20 SC 0759 Hydromorphone HCl 1 MG Q6P PRN 07/20 0915 AC IV Hydromorphone HCl 1 MG Q4P PRN 07/20 0745 DC 07/20 IV 0759 Lactated Ringer's 1,000 ML Q10H 07/18 1900 AC 07/20 IV 0919 Lidocaine 1 PAT DAILY@1600 / 1600 AC EXT Lidocaine 1 PAT DAILY 07/19 1530 DC 07/19 EXT 1623 Lorazepam 0 Q2 PRN 07/18 1830 AC 07/19 IV 1443 Magnesium Sulfate 1 GM ONCE ONE 07/19 0915 DC 07/19 Dextrose/Water 100 ML IV 07/19 1314 1306 Morphine Sulfate 2 MG Q4P PRN 07/18 1330 DC 07/20 IV 0430 Ondansetron HCl 4 MG Q6P PRN 07/18 1815 AC 07/18 IV 1841 Phenazopyridine HCl 100 MG PC 07/18 1830 AC 07/20 PO 07/20 1301 0759 Senna/Docusate Sodium 2 TAB AT BEDTIME PRN 07/18 1330 AC PO Sodium Chloride 1,000 ML BOLUS ONE 07/19 1115 DC 07/19 IV 07/19 1214 1147 Last 24 Hrs of Lab/Ghassan Results Last 24 Hrs of Labs/Mics: Laboratory Tests 07/20/16 0625: Anion Gap 6, Estimated GFR > 60, BUN/Creatinine Ratio 5.0 L, Calcium 7.5 L, Magnesium 1.7, Total Bilirubin 1.3, Direct Bilirubin 0.7 H, AST 139 H, ALT 175 H, Alkaline Phosphatase 152 H, Total Protein 4.9 L, Albumin 2.3 L, Lipase 1099 H, CBC w Diff NO MAN DIFF REQ, RBC 3.22 L, MCV 82.0, MCH 26.8 L, RDW 21.2 H, MPV 8.2, Gran % 35.0 L, Lymphocytes % 54.4 H, Monocytes % 6.9, Eosinophils % 3.1, Basophils % 0.6, Absolute Granulocytes 1.7, Absolute Lymphocytes 2.6, Absolute Monocytes 0.3, Absolute Eosinophils 0.1, Absolute Basophils 0, PUBS MCHC 32.7 L 07/19/16 1913: Troponin I < 0.01 Assessment/Plan Assessment: 46-year-old female with PMH of morbid obesity status post Claire-en-Y gastric bypass surgery in 2002 which was complicated by hiatal hernia or obstruction, and status post cholecystectomy 4 years back, history of recurrent pancreatitis in the past, with her last admission for pancreatitis in December 2015, on chronic methadone which has been tapered off in the last week (07/11/16 with the last dose), presented to [facility] persistent abdominal pain with nausea and vomiting. The imaging and the labs values were significant for acute pancreatitis, lipase greater than 1800. # Acute pancreatitis likely secondary to chronic alcohol use the patient's alcohol level greater than 298. Other possibility for acute pancreatitis considering gastric bypass surgery could be gallstones, even though calcium oxalate stones are more common gastric bypass patients. RUQ US was negative for CBD * Continue LR 200ml/hr * Pain control with IV dilaudid 1q4 * Low dose ativan PRN * Diet advanced to regular diet # Alcoholic hepatitis and alcoholic dependence - LFT trended down * CIWA Q2 * low dose ativan per ciwa # Chronic opiate use * Watchout for signs of withdrawal # Elevated anion gap with no evidence of metabolic acidosis. Likely secondary to dehydration * Resolved # Hypokalemia * Replete as needed # Hypomagnesiumia * Replete as needed Diet: full liquid DVT prophylaxis with alps & subcutaneous Lovenox Full code Problem List: 1. Pancreatitis Pain Ratin Pain Location: epigastric and back Pain Goal: Pain 7 or less Pain Plan: dilaudid Tomorrow's Labs & Rationales: cbc bep mag for pancreatitis DVT/Prophylaxis: mechanical, pharmacological LORRAINE TERAN 07/20/16 1116: Attending MD Review Statement Attending Statement Attending MD Statement: examined this patient, discuss w/resident/PA/DEPARTMENT CLINICIAN, agreed w/resident/PA/DEPARTMENT CLINICIAN, discussed with family, reviewed EMR data (avail), discussed with nursing, discussed with case mgmt, reviewed images, amended to note Attending Assessment/Plan: Patient admitted with acute pancreatitis, alcohol induced LFTs elevated in pattern, lipase 1900s on admission, no ct necrosis, clincally improving , c/w IVF and hydration. CIWA scale, lipase trending down, advance diet as tolerated, pain control. gi/dvt prophyalxis full code.
[2016-07-20 06:58] VITALS: BP 116/64
[2016-07-20 07:40] LABS: ABSOLUTE BASOPHIL COUNT 0 /CUMM (0.0-0.2); ABSOLUTE EOSINOPHIL COUNT 0.1 /CUMM (0.0-0.7); ABSOLUTE GRANULOCYTE CT 1.7 /CUMM (1.4-6.5); ABSOLUTE LYMPH COUNT 2.6 /CUMM (1.2-3.4); ABSOLUTE MONOCYTE COUNT 0.3 /CUMM (0.10-0.60); BASOPHIL % 0.6 % (0.0-2.0); EOSINOPHIL % 3.1 % (0-5); HEMATOCRIT 26.4 % (37-47); MEAN CORPUSCULAR HGB 26.8 PG (27.0-31.0); MEAN CORPUSCULAR HGB CONC 32.7 G/DL (33.0-37.0); MEAN PLATELET VOLUME 8.2 FL (7.4-10.4); PLATELET COUNT 113 /CUMM (130-400); RBC DISTRIBUTION WIDTH 21.2 % (11.5-14.5); RED BLOOD CELL CT 3.22 /CUMM (4.20-5.40); WHITE BLOOD CELL COUNT 4.8 /CUMM (4.8-10.8)
--- NOTE | 2016-07-20 08:59 | RADIOLOGY REPORT ---
EXAMINATION: XR PORTABLE CHEST CLINICAL INFORMATION: Decreased breath sounds at right base. Shortness of breath. Evaluate for pleural effusion. COMPARISON: 02/08/2016 TECHNIQUE: Portable AP view of the chest was obtained. FINDINGS: Lungs are well expanded and clear. No evidence of pulmonary mass, consolidation or pleural effusion. Cardiac silhouette is normal in size. The mediastinal and hilar contours are normal. Bones are unremarkable. IMPRESSION: Normal chest. No evidence of right basilar consolidation or pleural effusion.
--- NOTE | 2016-07-20 11:47 | Discharge Summary ---
Visit Information Visit Dates Admission Date: 07/18/16 Discharge Date: 07/21/16 Hospital Course Course Attending Physician: LORRAINE TERAN MD Primary Care Physician: ROSETTA CASTILLO,[facility] Course: 46-year-old female with PMH of morbid obesity status post Claire-en-Y gastric bypass surgery in 2002 which was complicated by hiatal hernia or obstruction, and status post cholecystectomy 4 years back, history of recurrent pancreatitis in the past, with her last admission for pancreatitis in December 2015, on chronic methadone which has been tapered off in the last week (07/11/16 with the last dose), presented to [facility] persistent abdominal pain with nausea and vomiting. The imaging and the labs values were significant for acute pancreatitis, lipase greater than 1800. Most likely due to alcohol binge, serum alcohol was 289, but could also be due to hypertriglyceridemia with TG of > 700 on admission. She was aggressively hydrated with lactated ringers, diet was advanced as tolerated. LFT improved, lipase trended down, electrolytes (k and mag) repleted as needed. Pain was controlled with morphine/dilaudid/vicodin. Pt discharged on 10 pills of percocet and told to follow up with Dr. Anne, PCP, and pain management (chronic back and neck pain). Pt seems motivated to stop alcohol binge. Allergies: Coded Allergies: Sulfa (Sulfonamide Antibiotics) (HIVES RASH 12/20/15) acetaminophen (Severe, LIVER PROBLEMS 12/20/15) aspirin (VOMITING 12/20/15) codeine (VOMITING 12/20/15) Pertinent Lab Results: D dimer 1028 Lipase up to 2098 Initial TG 767 AST up to 421 ALT up to 276 Alk phos up to 177 Total bili up to 2.4 Direct bili up to 1.1 CXR IMPRESSION: Normal chest. No evidence of right basilar consolidation or pleural effusion. Abdomen US IMPRESSION: 1. No sonographic evidence of biliary obstruction and/or choledocholithiasis is present. 2. Surgically absent gallbladder. 3. Diffuse abnormality involving the liver, consistent with diffuse liver disease, without any superimposed discrete focal abnormality. DICTATED BY: ANGELICA VELASQUEZ MD DATE/TIME DICTATED:07/18/16 / 1611 CTA/abdomen/pelvis IMPRESSION: 1. No pulmonary embolus. 2. No thoracic or abdominal aortic aneurysm. 3. Hepatic steatosis. 4. Prior gastric bypass surgery without evidence of obstruction at the anastomotic site 5. Prior cholecystectomy. VTE: negative DICTATED BY: LARYR RAYMUNDO MD DATE/TIME DICTATED:07/18/161041 Disposition Summary Disposition Principal Diagnosis: Pancreatitis most likely due to alcohol use Additional Diagnosis: Alcoholic hepatitis Discharge Disposition: home or self care Discharge Instructions General Discharge Information Code Status: Full Code Patient's Diet: Heart healthy , low fat Patient's Activity: As tolerated Follow-Up Instructions/Appts: You were seen/treated for: Pancreatitis most likely due to alcohol Special Instructions: Please follow up with PCP and pain management clinic in 1 week. Follow up with Dr. Anne Medications at Discharge Discharge Medications: Stop taking the following medications: Methadone HCl (Methadone HCl) 10 MG/ML ORAL.CONC ORAL DAILY Potassium Chloride (K-Tab ER) 10 MEQ TABLET.ER ORAL DAILY Qty = 10 Start taking the following new medications: Sennosides/Docusate Sodium (Senna Plus Tablet) 8.6 MG-50 MG TABLET 2 Tablet ORAL AT BEDTIME as needed for CONSTIPATION Qty = 30 No Refills Oxycodone HCl/Acetaminophen (Percocet 5-325 MG Tablet) 5 MG-325 MG TABLET 1 Tablet ORAL TWICE DAILY as needed for pain Qty = 10 No Refills Copies To: JULIETTE CASTILLO,TORSTEN BOSS; ROSETTA CASTILLO,JOE Felton MD Review Statement Documenting Attending: LORRAINE TERAN MD
--- NOTE | 2016-07-20 13:19 | Patient Discharge Instructions ---
Discharge Instructions General Discharge Information You were seen/treated for: Pancreatitis most likely due to alcohol Special Instructions: Please follow up with PCP and pain management clinic in 1 week. Diet Continue normal diet: Yes Recommended Diet: Heart Healthy, Low Fat Activity Full Activity/No Limits: Yes Acute Coronary Syndrome Inclusion Criteria At DC or during hospital stay patient has or had the following: ACS DIAGNOSIS No Discharge Core Measures Meds if any: Prescribed or Continued at Discharge Meds if any: NOT Prescribed or Continued at Discharge Congestive Heart Failure Inclusion Criteria At DC or during hospital stay patient has or had the following: CHF DIAGNOSIS No Discharge Core Measures Meds if any: Prescribed or Continued at Discharge Meds if any: NOT Prescribed or Continued at Discharge Cerebrovascular accident Inclusion Criteria At DC or during hospital stay patient has or had the following: CVA/TIA Diagnosis No Discharge Core Measures Meds if any: Prescribed or Continued at Discharge Meds if any: NOT Prescribed or Continued at Discharge Venous thromboembolism Inclusion Criteria VTE Diagnosis No VTE Type NONE VTE Confirmed by (Test) NONE Discharge Core Measures - Per Current guidelines, there needs to be overlap - treatment for the first 5 days of Warfarin therapy. - If discharged on Warfarin prior to 5 days of - overlap therapy, the patient will need to be - assessed for post discharge needs including - *Post discharge parental anticoagulation - *Warfarin and/or parental anticoagulation education - *Follow up date to check INR post discharge At least 5 days overlap therapy as Inpatient No Meds if any: Prescribed or Continued at Discharge Note: Overlap Therapy is Warfarin and Anticoagulant Meds if any: NOT Prescribed or Continued at Discharge
[2016-07-20] MEDS ORDERED: PERCOCET 5-3251 EACH PO (14:25)
[2016-07-20] MEDS ORDERED: SENNA PLUS TAB1 EACH PO (14:26)
[2016-07-20 14:32] VITALS: BP 130/88
[2016-07-20 16:00] VITALS: BP 130/88
[2016-07-20 21:56] VITALS: BP 110/70
[2016-07-21 06:00] VITALS: BP 114/80
[2016-07-21 06:30] VITALS: BP 114/80
--- NOTE | 2016-07-21 06:59 | PN- Housestaff ---
MARTÍN CASTILLO,IRVING 07/21/16 0658: Subjective Follow-up For: pancreatitis Subjective: pt reported 9/10 pain, and feeling "crappy" today. she was feeling nauseous. although she wants to go home to see her grandchild, she is not sure if she will be able to tolerate the pain at home. will change dilaudid from iv to po. Review of Systems Constitutional: Reports: see HPI. Objective Last 24 Hrs of Vital Signs/I&O Vital Signs Date Time Temp Pulse Resp B/P B/P Pulse O2 O2 Flow FiO2 Mean Ox Delivery Rate 07/21 0630 98.1 82 18 114/80 96 Room Air 07/21 0600 98.1 82 18 114/80 07/20 2156 98.5 95 22 110/70 96 07/20 1600 97.8 107 20 130/88 05 1432 97.8 107 20 130/88 95 Room Air Intake & Output 07/21 1600 / 0800 / 0000 Intake Total 1140 1640 Output Total Balance 1140 1640 Intake, IV 800 800 Intake, Oral 340 840 Physical Exam General Appearance: Alert, Oriented X3, Cooperative, Mild Distress Cardiovascular: Regular Rate, Normal S1, Normal S2, No Murmurs Lungs: Clear to Auscultation, Normal Air Movement Abdomen: Soft, tender ruq and epigastric Neurological: Normal Speech Extremities: No Edema Current Medications: Current Medications Sig/Blake Start time Last Medication Dose Route Stop Time Status Admin Acetaminophen 650 MG Q6P PRN 07/18 1330 AC 07/21 PO 0128 Acetaminophen/ 1 TAB Q6P PRN 07/18 1330 AC 07/21 Hydrocodone Bitart PO 0530 Enoxaparin Sodium 40 MG DAILY 07/19 1000 AC 07/20 SC 0759 Hydromorphone HCl 2 MG Q6P PRN 07/21 0800 AC 07/21 PO 0810 Hydromorphone HCl 1 MG Q6P PRN 07/20 0915 DC 07/21 IV 0134 Hydromorphone HCl 1 MG Q4P PRN 07/20 0745 DC 07/20 IV 0759 Lactated Ringer's 1,000 ML Q10H / 1900 DC /03 IV 2330 Lidocaine 1 PAT DAILY@1600 07/20 1600 AC 07/20 EXT 1604 Lorazepam 0 Q2 PRN 07/18 1830 AC 07/20 IV 1819 Ondansetron HCl 4 MG Q6P PRN 07/18 1815 AC 07/21 IV 0750 Patient Medication 1 ED .STK-MED ONE 07/20 1356 DC Teaching ED 07/20 1357 Phenazopyridine HCl 100 MG PC 07/18 1830 DC 07/20 PO 07/20 1301 1348 Senna/Docusate Sodium 2 TAB AT BEDTIME PRN 07/18 1330 AC PO Last 24 Hrs of Lab/Ghassan Results Last 24 Hrs of Labs/Mics: Laboratory Tests 07/21/16 0650: Sodium Pending, Potassium Pending, Chloride Pending, Carbon Dioxide Pending, Anion Gap Pending, BUN Pending, Creatinine Pending, BUN/Creatinine Ratio Pending , Magnesium Pending, CBC w Diff NO MAN DIFF REQ, RBC 3.34 L, MCV 83.5, MCH 26.9 L, RDW 21.3 H, MPV 8.4, Gran % 49.4, Lymphocytes % 41.6, Monocytes % 5.8, Eosinophils % 2.9, Basophils % 0.3, Absolute Granulocytes 2.3, Absolute Lymphocytes 1.9, Absolute Monocytes 0.3, Absolute Eosinophils 0.1, Absolute Basophils 0, PUBS MCHC 32.3 L Assessment/Plan Assessment: 46-year-old female with PMH of morbid obesity status post Claire-en-Y gastric bypass surgery in 2002 which was complicated by hiatal hernia or obstruction, and status post cholecystectomy 4 years back, history of recurrent pancreatitis in the past, with her last admission for pancreatitis in December 2015, on chronic methadone which has been tapered off in the last week (07/11/16 with the last dose), presented to [facility] persistent abdominal pain with nausea and vomiting. The imaging and the labs values were significant for acute pancreatitis, lipase greater than 1800. # Acute pancreatitis likely secondary to chronic alcohol use the patient's alcohol level greater than 298. Other possibility for acute pancreatitis considering gastric bypass surgery could be gallstones, even though calcium oxalate stones are more common gastric bypass patients. RUQ US was negative for CBD * LR discontinued * Pain control with PO dilaudid 1q4 and vicodin * On regular diet # Alcoholic hepatitis and alcoholic dependence - LFT trended down * CIWA Q2 * low dose ativan per ciwa # Chronic opiate use * Watchout for signs of withdrawal # Elevated anion gap with no evidence of metabolic acidosis. Likely secondary to dehydration * Resolved # Hypokalemia * Replete as needed # Hypomagnesiumia * Replete as needed Diet: full liquid DVT prophylaxis with alps & subcutaneous Lovenox Full code Problem List: 1. Pancreatitis Pain Ratin Pain Location: epigastric, ruq Pain Goal: Pain 7 or less Pain Plan: dilaudid and vicodin Tomorrow's Labs & Rationales: none DVT/Prophylaxis: mechanical, pharmacological LORRAINE TERAN 07/21/16 1131: Attending MD Review Statement Attending Statement Attending MD Statement: examined this patient, discuss w/resident/PA/TICKET TAKER FERRYBOAT, agreed w/resident/PA/TICKET TAKER FERRYBOAT, discussed with family, reviewed EMR data (avail), discussed with nursing, discussed with case mgmt, reviewed images, amended to note Attending Assessment/Plan: Patient admitted with acute pancreatitis, alcohol induced LFTs elevated in pattern, lipase 1900s on admission, no ct necrosis, clincally improving , c/w IVF and hydration. CIWA scale, lipase trending down, advance diet as tolerated, pain control. gi/dvt prophyalxis full code. anticipate d/c soon.
[2016-07-21 08:24] LABS: ABSOLUTE BASOPHIL COUNT 0 /CUMM (0.0-0.2); ABSOLUTE EOSINOPHIL COUNT 0.1 /CUMM (0.0-0.7); ABSOLUTE GRANULOCYTE CT 2.3 /CUMM (1.4-6.5); ABSOLUTE LYMPH COUNT 1.9 /CUMM (1.2-3.4); ABSOLUTE MONOCYTE COUNT 0.3 /CUMM (0.10-0.60); BASOPHIL % 0.3 % (0.0-2.0); EOSINOPHIL % 2.9 % (0-5); GRANULOCYTE % 49.4 % (42.2-75.2); HEMATOCRIT 27.9 % (37-47); MEAN CORPUSCULAR HGB 26.9 PG (27.0-31.0); MEAN CORPUSCULAR HGB CONC 32.3 G/DL (33.0-37.0); MEAN CORPUSCULAR VOLUME 83.5 FL (81.0-99.0); MEAN PLATELET VOLUME 8.4 FL (7.4-10.4); PLATELET COUNT 117 /CUMM (130-400); RBC DISTRIBUTION WIDTH 21.3 % (11.5-14.5); RED BLOOD CELL CT 3.34 /CUMM (4.20-5.40); WHITE BLOOD CELL COUNT 4.7 /CUMM (4.8-10.8)
--- NOTE | 2016-07-21 08:55 | NUR ---
PT'S URINE CULTURE NOTED WITH >100K OF E.COLI. PT REPORTS SHE PREVIOUSLY HAD BURNING W/URINATION BUT NO LONGER DOES. DR. RESENDIZ NOTIFIED. WILL CONT TO MONITOR.
== END 2016-07-21 12:14 | DRG 439 ==
LOC: ERH 08:31 → ERHI 14:09 → 2NB 14:09 → ENRESERV 15:42 → 2NB 17:18 → ENPENDDIS 07-21 11:11 → 2NB 07-21 12:14
PROVIDERS: Internal Medicine Nephrology; Physician Assistant Medical; Radiology Diagnostic Radiology; ADMIT Internal Medicine
DX: K85.20 Alcohol induced acute pancreatitis without necrosis or infection (principal); F11.20 Opioid dependence, uncomplicated; E83.42 Hypomagnesemia; K70.10 Alcoholic hepatitis without ascites; F10.20 Alcohol dependence, uncomplicated; Y90.8 Blood alcohol level of 240 mg/100 ml or more; E87.6 Hypokalemia
CPT/HCPCS: 2NBSP; 74177; 80307; 81001; 82436; 87086; 93005; 93010; 96361; 96372; 96374; 96375; G0480; J0500; J1650; J1885; J2405; J2765; J7120